=== PATIENT | female | born 1975 | race Caucasian/White ===

== ENCOUNTER 2019-09-22 11:56 | Emergency (ER) | payer SELFPAY ==
[~2019-09-22] VITALS: Ht 152.4 cm; Wt 65.8 kg
[2019-09-22 12:20] VITALS: Ht 152.4 cm; Wt 65.8 kg
[2019-09-22 15:35] VITALS: BP 140/76
== END 2019-09-22 15:40 | disposition home or self-care (01) ==
LOC: ED 11:56
DX: S09.8XXA Other specified injuries of head, initial encounter (principal); R32 Unspecified urinary incontinence; R20.0 Anesthesia of skin; M54.5 Low back pain; M25.521 Pain in right elbow; M25.561 Pain in right knee; W01.0XXA Fall on same level from slipping, tripping and stumbling without subsequent striking against object, initial encounter; Y93.89 Activity, other specified; Y92.89 Other specified places as the place of occurrence of the external cause; Y99.8 Other external cause status
CPT/HCPCS: J1885